=== PATIENT | female | born 1930 | race African-American/Black ===

== ENCOUNTER 2017-07-17 14:19 | Emergency (ER) | payer MEDICARE, OTHER ==
[2017-07-17 14:48] LABS: #Basophils 0.1 thou/uL (0.0-0.2); #Eosinphils 0.1 thou/uL (0.0-0.7); #Lymphocytes 1.3 thou/uL (1.20-3.40); #Monocytes 0.4 thou/uL (0.11-0.59); #Neutrophils 2.3 thou/uL (1.40-6.50); %Basophils 1.6 % (0.0-1.0); %Eosinophils 1.6 % (0.0-10.0); %Lymphocytes 32.2 % (21.0-51.0); %Monocytes 8.4 % (0.0-10.0); %Neutrophils 56.2 % (42.0-75.0); Hemoglobin 13.3 g/dL (12.0-16.0); Mean Corpuscular Hemoglobin 29.2 pg (27.0-31.0); Mean Corpuscular Volume 91.2 fl (81.0-99.0); Mean Platelet Volume 6.8 fL (7.4-10.4); Platelet Count 173 thou/uL (130-400); RBC Distribution Width 12.7 % (11.5-14.5); Red Blood Cell (RBC) Count 4.55 mill/uL (4.20-5.40); White Blood Cell (WBC) Count 4.1 thou/uL (4.8-10.8)
[2017-07-17 14:58] LABS: INR-International Normal Ratio 1.1; PTT 26.8 SEC (22.9-36.1); Prothrombin Time 13.8 SEC (12.0-14.7)
--- NOTE | 2017-07-17 15:01 | CT ---
CT BRAIN: DATE: 07/17/17. TECHNIQUE: Noncontrast-enhanced Ct images of the brain were obtained from the base of the skull through the blue kate. Brain and bone windows obtained. HISTORY: Stroke. Altered mental status. FINDINGS: Noncontrast-enhanced CT images of the brain demonstrate diffuse cortical atrophy and deep white edvin er ischemic changes. There appears to be an area of hyperdensity in the left basal ganglion possibly representing left ba jodi ganglion calcifications. There is a density having no surrounding edema to suggest acute stroke . In addition, these calcifications were also present on the patient's previous CT from 07/24/11. IMPRESSION: Diffuse cortical atrophy and deep white matter ischemic changes. Findings called to Dr. Steinberg at 2:38 p.m. on 07/17/17. CODE CR POS: [facility]
[2017-07-17 15:07] LABS: ALT (SGPT) 6 U/L (8-55); AST (SGOT) 14 U/L (5-34); Albumin 3.9 g/dL (3.4-4.8); Alkaline Phosphatase 70 U/L (40-150); Anion Gap 13 mmol/L (10-20); BUN (Urea Nitrogen) 14 mg/dL (9.8-20.1); Bilirubin, Total 1.2 mg/dL (0.2-1.2); Calc. Creatinine Clearance 0 mL/min (70-130); Calcium 9.5 mg/dL (7.8-10.44); Carbon Dioxide 24 mmol/L (23-31); Chloride 105 mmol/L (98-107); Estimated GFR-MDRD 84; Globulin 3.7 g/dL (2.4-3.5); Glucose 89 mg/dL (83-110); Potassium 3.8 mmol/L (3.5-5.1); Protein, Total 7.6 g/dL (6.0-8.3); Sodium 138 mmol/L (136-145)
[2017-07-17 15:14] LABS: CKMB 1.8 ng/mL (0-6.6); Troponin I Less than 0.010 ng/mL (< 0.028)
[2017-07-17] MEDS ORDERED: Sodium Chloride 0.9% 500 ML ONE (15:29)
== END 2017-07-17 16:30 | disposition home or self-care (01) ==
LOC: NAV ERS 14:19
DX: E86.0 Dehydration (principal); R55 Syncope and collapse; F03.90 Unspecified dementia, unspecified severity, without behavioral disturbance, psychotic disturbance, mood disturbance, and anxiety; Z79.899 Other long term (current) drug therapy
CPT/HCPCS: 36416; 70450; 80053; 82553; 84484; 85025; 85610; 85730; 93005; 96360; 36415-59; J7050

== ENCOUNTER 2018-02-15 13:46 | Emergency (ER) | payer MEDICARE, OTHER ==
[2018-02-15] MEDS ORDERED: Sodium Chloride 0.9% 1,000 ML ONE (14:12)
[2018-02-15 14:32] LABS: PTT 35.6 SEC (22.9-36.1); Prothrombin Time 13.4 SEC (12.0-14.7)
[2018-02-15 14:34] LABS: Bilirubin Negative (Negative); Blood, Urine Large (Negative); Clarity Slightly Cloudy (Clear); Glucose, Urine (Dipstick) Negative (Negative); Leukocyte Negative (Negative); Nitrite Negative (Negative); Protein, Urine (Dipstick) Negative (Neg-Trace); Urobilinogen 0.2 mg/dL (0.2-1.0)
[2018-02-15 14:39] LABS: Bacteria/HPF None Seen HPF (None Seen); RBC/HPF GREATER THAN 50-TNTC HPF (0-3); Squamous Epithelial 0-3 HPF (0-3); WBC/HPF 0-3 HPF (0-3)
[2018-02-15 14:39] LABS: ALT (SGPT) 12 U/L (8-55); AST (SGOT) 24 U/L (5-34); Albumin 4.1 g/dL (3.4-4.8); Alkaline Phosphatase 80 U/L (40-150); Anion Gap 14 mmol/L (10-20); BUN (Urea Nitrogen) 17 mg/dL (9.8-20.1); Bilirubin, Total 0.6 mg/dL (0.2-1.2); CK (CPK) 61 U/L (29-168); Calc. Creatinine Clearance 0 mL/min (70-130); Calcium 9.2 mg/dL (7.8-10.44); Carbon Dioxide 22 mmol/L (23-31); Chloride 107 mmol/L (98-107); Estimated GFR-MDRD 89; Globulin 3.9 g/dL (2.4-3.5); Glucose 82 mg/dL (83-110); Potassium 4.2 mmol/L (3.5-5.1); Sodium 139 mmol/L (136-145)
[2018-02-15 14:43] LABS: CKMB 2.9 ng/mL (0-6.6); Troponin I Less than 0.010 ng/mL (< 0.028)
[2018-02-15 14:58] LABS: #Eosinphils 0.1 thou/uL (0.0-0.7); #Lymphocytes 1.3 thou/uL (1.20-3.40); #Monocytes 0.2 thou/uL (0.11-0.59); #Neutrophils 2.3 thou/uL (1.40-6.50); %Basophils 1.2 % (0.0-1.0); %Eosinophils 1.6 % (0.0-10.0); %Lymphocytes 33.1 % (21.0-51.0); %Monocytes 6.1 % (0.0-10.0); %Neutrophils 57.9 % (42.0-75.0); Hemoglobin 13.5 g/dL (12.0-16.0); MDiff Complete? YES; Mean Corpuscular Hemoglobin 27.2 pg (27.0-31.0); Mean Corpuscular Volume 90.8 fl (81.0-99.0); Mean Platelet Volume 7.3 fL (7.4-10.4); Platelet Count 210 thou/uL (130-400); RBC Distribution Width 13.3 % (11.5-14.5); Red Blood Cell (RBC) Count 4.96 mill/uL (4.20-5.40); White Blood Cell (WBC) Count 3.9 thou/uL (4.8-10.8)
[2018-02-15 14:59] LABS: RBC Morphology Normal
--- NOTE | 2018-02-15 15:00 | CT ---
CT BRAIN WITHOUT CONTRAST: Comparison: 07-17-17 History: Syncope, altered mental status. Technique: Multiple contiguous axial images were obtained in a CT of the brain without contrast. FINDINGS: This exam is limited secondary to motion artifact. There are extensive scattered hypodensities in the subcortical and periventricular white matter, likely secondary to small vessel ischemic disease. The re is calcification in the bilateral basal ganglia. There is no evidence of hydrocephalus, intracrani al hemorrhage, or extraaxial fluid collections. No new large confluent infarction is appreciated. Calvarium and overlying soft tissues are unremarkable. The visualized paranasal sinuses and mastoid a ir cells are well aerated. IMPRESSION: No evidence of acute intracranial abnormality. POS: [facility]
== END 2018-02-15 16:00 | disposition home or self-care (01) ==
LOC: NAV ERS 13:46
DX: R55 Syncope and collapse (principal); F03.90 Unspecified dementia, unspecified severity, without behavioral disturbance, psychotic disturbance, mood disturbance, and anxiety
CPT/HCPCS: 36416; 51701; 70450; 80053; 81003; 81015; 82550; 82553; 84484; 85025; 85610; 85730; 87086; 93005; 96360; 36415-59; A4353; J7050

== ENCOUNTER 2018-04-30 13:17 | Emergency (ER) | payer MEDICARE ==
[2018-04-30] MEDS ORDERED: Dextrose 50% Abboject 50 ML SYRINGE ONE (13:32)
[2018-04-30] MEDS ORDERED: Sodium Chloride 0.9% 1,000 ML ONE (13:34)
[2018-04-30 13:53] LABS: #Basophils 0.1 thou/uL (0.0-0.2); #Eosinphils 0.1 thou/uL (0.0-0.7); #Lymphocytes 1.8 thou/uL (1.20-3.40); #Monocytes 0.5 thou/uL (0.11-0.59); #Neutrophils 2.7 thou/uL (1.40-6.50); %Basophils 1.5 % (0.0-1.0); %Eosinophils 1.6 % (0.0-10.0); %Lymphocytes 34.9 % (21.0-51.0); %Monocytes 8.8 % (0.0-10.0); %Neutrophils 53.2 % (42.0-75.0); Hemoglobin 13.9 g/dL (12.0-16.0); Mean Corpuscular HGB CONC 31.7 g/dL (32.0-36.0); Mean Corpuscular Hemoglobin 28.5 pg (27.0-31.0); Mean Platelet Volume 6.8 fL (7.4-10.4); Platelet Count 215 thou/uL (130-400); RBC Distribution Width 13.1 % (11.5-14.5); Red Blood Cell (RBC) Count 4.86 mill/uL (4.20-5.40); White Blood Cell (WBC) Count 5.2 thou/uL (4.8-10.8)
[2018-04-30 14:08] LABS: ALT (SGPT) 11 U/L (8-55); AST (SGOT) 20 U/L (5-34); Alkaline Phosphatase 80 U/L (40-150); Anion Gap 16 mmol/L (10-20); BUN (Urea Nitrogen) 15 mg/dL (9.8-20.1); Bilirubin, Total 0.8 mg/dL (0.2-1.2); Calc. Creatinine Clearance 0 mL/min (70-130); Calcium 9.1 mg/dL (7.8-10.44); Carbon Dioxide 19 mmol/L (23-31); Chloride 107 mmol/L (98-107); Estimated GFR-MDRD 89; Globulin 3.5 g/dL (2.4-3.5); Glucose 129 mg/dL (83-110); Protein, Total 7.5 g/dL (6.0-8.3); Sodium 138 mmol/L (136-145)
[2018-04-30 14:10] LABS: CKMB 1.8 ng/mL (0-6.6); Troponin I Less than 0.010 ng/mL (< 0.028)
--- NOTE | 2018-04-30 14:21 | CT ---
CT HEAD NONCONTRAST: Comparison: 02-15-18 Indication: Unresponsive patient. FINDINGS: There is age appropriate parenchymal volume loss with compensatory dilatation of the ventricular syst em. Moderate chronic microvascular ischemic disease is present with ex vacuo dilatation of the ventri cular system. No intracranial hemorrhage or mass effect. IMPRESSION: Chronic ischemic disease and parenchymal volume loss. No acute intracranial hemorrhage or mass effect . POS: [facility]
--- NOTE | 2018-04-30 14:23 | RAD ---
FRONTAL VIEW CHEST: Comparison: 02-03-09 Indication: Unresponsive patient. FINDINGS: There is no evidence of lobar consolidation. Interstitial prominence is seen within each lung. There remains enlargement of the cardiac silhouette as well as prominence of the pulmonary vasculature. Angela st is otherwise similar. IMPRESSION: 1. Evidence of CHF. 2. Linear density at the right lung base may be related to superimposed atelectasis and/or scar. POS: [facility]
[2018-04-30 14:56] LABS: Bilirubin Negative (Negative); Blood, Urine Small (Negative); Clarity Clear (Clear); Glucose, Urine (Dipstick) 250 mg/dL (Negative); Leukocyte Negative (Negative); Nitrite Negative (Negative); Protein, Urine (Dipstick) Negative (Neg-Trace); Specific Gravity, Urine 1.015 (1.005-1.030); Urobilinogen 0.2 mg/dL (0.2-1.0)
== END 2018-04-30 15:45 | disposition home or self-care (01) ==
LOC: NAV ERS 13:17
DX: E16.2 Hypoglycemia, unspecified (principal)
CPT/HCPCS: 36416; 51701; 70450; 71045; 80053; 81003; 81015; 82553; 84484; 85025; 93005; 96361; 96374; A4353; J7050

== ENCOUNTER 2018-07-28 13:05 | Emergency (ER) | payer MEDICARE ==
[2018-07-28] MEDS ORDERED: Sodium Chloride 0.9% 1,000 ML ONE (13:21)
[2018-07-28] MEDS ORDERED: Dextrose 50% Abboject 50 ML SYRINGE ONE (13:21)
[2018-07-28 14:21] LABS: #Basophils 0.1 thou/uL (0.0-0.2); #Eosinphils 0.1 thou/uL (0.0-0.7); #Lymphocytes 1.4 thou/uL (1.20-3.40); #Monocytes 0.4 thou/uL (0.11-0.59); #Neutrophils 1.8 thou/uL (1.40-6.50); %Basophils 1.7 % (0.0-1.0); %Eosinophils 1.5 % (0.0-10.0); %Lymphocytes 38.3 % (21.0-51.0); %Monocytes 10.1 % (0.0-10.0); %Neutrophils 48.5 % (42.0-75.0); Hemoglobin 15.1 g/dL (12.0-16.0); Mean Corpuscular HGB CONC 32.4 g/dL (32.0-36.0); Mean Corpuscular Hemoglobin 30.4 pg (27.0-31.0); Mean Corpuscular Volume 93.7 fL (78.0-98.0); Mean Platelet Volume 6.9 fL (7.4-10.4); Platelet Count 200 thou/uL (130-400); RBC Distribution Width 13.6 % (11.5-14.5); Red Blood Cell (RBC) Count 4.98 mill/uL (4.20-5.40); White Blood Cell (WBC) Count 3.6 thou/uL (4.8-10.8)
--- NOTE | 2018-07-28 14:39 | RAD ---
FRONTAL VIEW CHEST: Indication: Altered mental status. Hypoglycemia. FINDINGS: The cardiac silhouette is prominent, accentuated by technique. There is bilateral interstitial promin ence and patchy bibasilar opacities are present. Stable prominence of the right superior mediastinal region. Chest otherwise is similar. IMPRESSION: Findings which likely related to edema from CHF. Recommend clinically correlation. Imaging follow up may also prove useful. POS: [facility]
[2018-07-28 15:28] LABS: Bilirubin Negative (Negative); Blood, Urine Negative (Negative); Clarity Clear (Clear); Glucose, Urine (Dipstick) 500 mg/dL (Negative); Leukocyte Negative (Negative); Nitrite Negative (Negative); Protein, Urine (Dipstick) Negative (Neg-Trace); Specific Gravity, Urine 1.025 (1.005-1.030)
[2018-07-28 15:32] LABS: ALT (SGPT) 11 U/L (8-55); AST (SGOT) 20 U/L (5-34); Albumin 3.6 g/dL (3.4-4.8); Alkaline Phosphatase 61 U/L (40-150); Anion Gap 15 mmol/L (10-20); BUN (Urea Nitrogen) 15 mg/dL (9.8-20.1); Bilirubin, Total 0.6 mg/dL (0.2-1.2); CKMB 2.1 ng/mL (0-6.6); Calc. Creatinine Clearance 0 mL/min (70-130); Calcium 8.7 mg/dL (7.8-10.44); Carbon Dioxide 18 mmol/L (23-31); Chloride 110 mmol/L (98-107); Estimated GFR-MDRD Greater than 90; Globulin 2.9 g/dL (2.4-3.5); Glucose 108 mg/dL (83-110); Potassium 4.5 mmol/L (3.5-5.1); Protein, Total 6.5 g/dL (6.0-8.3); Sodium 138 mmol/L (136-145); Troponin I Less than 0.010 ng/mL (< 0.028)
--- NOTE | 2018-07-28 15:35 | CT ---
CT OF THE BRAIN WITHOUT CONTRAST: 07/28/18 INDICATION: Confusion, hypoglycemia. COMPARISON: Prior exam dated 04/30/18. FINDINGS: Generalized cerebral and cerebellar atrophy, stable. Severe chronic small vessel white matter ischemi c changes similar appearing. There has been interval remote appearing glover radiata lacunar infarcti on. There are small lacunar infarcts involving the right caudate head and right thalamus appear isaac lar appearing. A small lacunar involving the left cerebellum is similar appearing. The skull and extr acranial soft tissues are unremarkable. IMPRESSION: 1. No acute intracranial abnormality. 2. Stable chronic small vessel white matter ischemic change. 3. Interval development of a remote left glover radiata lacunar infarct. POS: [facility]
== END 2018-07-28 16:02 | disposition home or self-care (01) ==
LOC: NAV ERS 13:05
DX: E16.2 Hypoglycemia, unspecified (principal); I10 Essential (primary) hypertension; F03.90 Unspecified dementia, unspecified severity, without behavioral disturbance, psychotic disturbance, mood disturbance, and anxiety
CPT/HCPCS: 36416; 70450; 71045; 80053; 81003; 82553; 83880; 84484; 85025; 93005; 94760; 96361; 96374; J7050